=== PATIENT | male | born 1975 | race Caucasian/White ===

== ENCOUNTER 2018-05-26 13:30 | Emergency (ER) | payer OTHER ==
[~2018-05-26] VITALS: Ht 185.4 cm; Wt 100.0 kg
[2018-05-26] MEDS ORDERED: BUPIVAcaine/PF 2.5 mg/ml (0.25%) 30ml vial IJ ONE (14:00)
[2018-05-26] MEDS ORDERED: bupivacaine (with preservative) 5 mg/ml inj. 50ml IJ ONE (14:10)
[2018-05-26] MEDS ORDERED: BUPIVAcaine 2.5mg/ml inj 50ml vial (contains preservative) IJ ONE (14:10)
[2018-05-26] MEDS ORDERED: CEPH500C5 PO (14:55)
[2018-05-26] MEDS ORDERED: TETanus/Pertussis (Acell)/Diphther VAC/PF (Tdap-Adult) 0.5ml syringe IM ONE (15:00)
[2018-05-26 15:12] VITALS: BP 135/89
== END 2018-05-26 15:18 | disposition home or self-care (01) ==
LOC: ER 13:31
DX: S81.812A Laceration without foreign body, left lower leg, initial encounter (principal); Z79.899 Other long term (current) drug therapy; W25.XXXA Contact with sharp glass, initial encounter; Y93.89 Activity, other specified; Y92.89 Other specified places as the place of occurrence of the external cause; Y99.8 Other external cause status
CPT/HCPCS: 12001; 90471; 90715; 99283; A6222; A6449; J3490